=== PATIENT | male | born 1970 | race Caucasian/White ===

== ENCOUNTER 2017-04-06 05:32 | Day surgery (SDC) | payer OTHER ==
[~2017-04-06 05:32] MED LIST: EPIPEN0.3 MG/0.2 IM; FLOVENT HFA1 PUF1 INH; HYDROCODON-ACE1 EA16 PO; MULTI VITAMIN1 EAC2 PO; SINGULAIR10 M1 PO; VENTOLIN HFA18 G2 PO; VITAMIN D3 PO
== END 2017-04-06 14:15 ==
LOC: SRG 05:32 → SHSB 05:33 → ORW 07:22 → PACU 09:36 → SHSB 10:40
PROC: 0YUA4JZ Supplement Bilateral Inguinal Region with Synthetic Substitute, Percutaneous Endoscopic Approach (ICD-10-PCS; principal; 2017-04-06)
PROC: 8E0W4CZ Robotic Assisted Procedure of Trunk Region, Percutaneous Endoscopic Approach (ICD-10-PCS; 2017-04-06)
DX: K40.20 Bilateral inguinal hernia, without obstruction or gangrene, not specified as recurrent (principal); K21.9 Gastro-esophageal reflux disease without esophagitis; J45.909 Unspecified asthma, uncomplicated; Z85.828 Personal history of other malignant neoplasm of skin; Z91.012 Allergy to eggs; Z91.018 Allergy to other foods; Z79.82 Long term (current) use of aspirin; Z79.899 Other long term (current) drug therapy; Z98.890 Other specified postprocedural states
CPT/HCPCS: C1781; J0690; J2765; J3010